=== PATIENT | female | born 1975 | race Caucasian/White ===

== ENCOUNTER 2020-09-24 11:07 | Emergency (ER) | payer OTHER ==
--- NOTE | 2020-09-24 12:02 | EDM.PDOC ---
ED HPI GENERAL MEDICAL PROBLEM - General Chief Complaint: Lower Extremity Injury/Pain Stated Complaint: RT KNEE PAIN Time Seen by Provider: 09/24/20 11:27 Source of Information: Reports: Patient, RN Notes Reviewed History Limitations: Reports: No Limitations - History of Present Illness INITIAL COMMENTS - FREE TEXT/NARRATIVE: Patient is a 45-year-old female presenting to the emergency department with complaints of right knee pain. She states she is been having discomfort to the knee and calf for about 2 weeks. Today, she slipped on a rug and felt a pop in her knee. She has been unable to bear weight since that time. She denies any history of blood clots or previous injuries to this knee. She does have an appointment set up with her primary care provider, however he is not able to get in until of this week. Right Knee Pain Score (Numeric/FACES): 10 - Related Data Allergies Allergy/AdvReac Type Severity Reaction Status Date / Time Sulfa (Sulfonamide Allergy Hives Verified 09/24/20 11:32 Antibiotics) Home Meds: Home Meds Escitalopram Oxalate [Lexapro] 10 mg PO DAILY 09/24/20 [History] Hydroxychloroquine [Plaquenil] 200 mg PO BID 09/24/20 [History] Naproxen [Naprosyn] 500 mg PO Q12HR 5 Days #10 tab 09/24/20 [Rx] Pantoprazole Sodium [Protonix] 40 mg PO DAILY 09/24/20 [History] Past Medical History - Past Health History Medical/Surgical History: Denies Medical/Surgical History Psychiatric History: Reports: None Social & Family History - Tobacco Use Tobacco Use Status *Q: Never Tobacco User Review of Systems - Review of Systems Review Of Systems: Comprehensive ROS is negative, except as noted in HPI. ED EXAM, GENERAL - Physical Exam Exam: See Below General Appearance: Alert, WD/WN, No Apparent Distress Respiratory/Chest: No Respiratory Distress, Lungs Clear, Normal Breath Sounds, No Accessory Muscle Use, Chest Non-Tender Cardiovascular: Normal Peripheral Pulses, Regular Rate, Rhythm, No Edema, No Gallop, No JVD, No Murmur, No Rub Extremities: Other (Tenderness to palpation throughout the right knee. Mild swelling. Mild tenderness to palpation to the posterior right calf. No redness or warmth present.) Neurological: Alert, Oriented, CN II-XII Intact, Normal Cognition, Normal Gait, Normal Reflexes, No Motor/Sensory Deficits Psychiatric: Normal Affect, Normal Mood Skin Exam: Warm, Dry, Intact, Normal Color, No Rash Course - Vital Signs Last Recorded V/S: Last Vital Signs Temp 98.5 F 09/24/20 11:28 Pulse 80 09/24/20 11:28 Resp 16 09/24/20 11:28 BP 145/95 H 09/24/20 11:28 Pulse Ox 100 09/24/20 11:28 - Re-Assessments/Exams Free Text/Narrative Re-Assessment/Exam: Patient is a 45-year-old female presenting to the emergency department with complaints of 2-week history of right knee and calf pain as well as an acute injury to her knee today. She states that her rug slipped out from underneath her and she felt something pop in her right knee. She has been unable to bear weight since that time. I have ordered a x-ray of the right knee as well as a venous Doppler ultrasound of the right lower extremity. 09/24/20 12:38 X-ray of the right knee shows a small joint effusion but no bony abnormalities. Ultrasound shows no evidence of DVT within the right lower extremity. We will place the knee in a knee immobilizer. Patient states that she has crutches at home so she does not need them here. I will send a prescription for Naprosyn. Recommend that she keep her follow-up appointment on with her primary care provider. Discharge instructions as documented. Departure - Departure Time of Disposition: 12:39 Disposition: Home, Self-Care 01 Condition: Good Clinical Impression: Knee pain Qualifiers: Chronicity: acute Laterality: right Qualified Code(s): M25.561 - Pain in right knee - Discharge Information *PRESCRIPTION DRUG MONITORING PROGRAM REVIEWED*: No *COPY OF PRESCRIPTION DRUG MONITORING REPORT IN PATIENT SHADY: No Prescriptions: Naproxen [Naprosyn] 500 mg PO Q12HR 5 Days #10 tab Instructions: Acute Knee Pain, Adult Referrals: Monty Kent MD [Primary Care Provider] - Forms: ED Department Discharge Additional Instructions: You were seen in the emergency department today for a 2-week history of knee and calf pain as well as an acute injury to your knee. X-rays and ultrasound of the right lower extremity were completed. X-ray showed a small amount of fluid on the knee but there was no bony abnormalities. Ultrasound was found to be normal. You have been provided with a knee immobilizer. Recommend ice and elevation for the next few days. Use the crutches that you have at home as needed. Recommend that you keep your follow-up appoint with Dr. Kent on for reevaluation. The prescription for Naprosyn has been sent to [facility]. Take this medication as prescribed. Do not take ibuprofen while taking this medication, however you may still use Tylenol. Return to ER as needed. Sepsis Event Note (ED) - Evaluation Sepsis Screening Result: No Definite Risk - Focused Exam Vital Signs: Vital Signs Temp Pulse Resp BP Pulse Ox 09/24/20 11:28 98.5 F 80 16 145/95 H 100
--- NOTE | 2020-09-24 12:32 | CR ---
Right knee: Knee, lateral and sunrise patellar views are obtained of the right knee. Comparison: No prior knee study is available. Small osteophytes are noted medially. Small bony exostosis is noted off the posterior tibia. Medial and lateral joint compartments are maintained in height. Very small joint effusion is seen. Impression: 1. Findings as noted above. 2. No acute bony abnormality is seen. 3. Small joint effusion. Diagnostic code #2
--- NOTE | 2020-09-24 12:34 | US ---
Right lower extremity: Duplex and color Doppler evaluation was obtained of the right common femoral, proximal greater saphenous, superficial femoral, popliteal, posterior tibial and peroneal veins. Left common femoral vein was also evaluated. Comparison: No prior venous imaging is available. Findings: Normal phasic flow, augmentation and compression is seen. No popliteal cyst is appreciated. Impression: 1. No evidence of deep venous thrombosis within the right lower extremity or within the left common femoral vein. Diagnostic code #1
== END 2020-09-24 13:30 | disposition home or self-care (01) ==
LOC: JD.ED 11:07
DX: M25.561 Pain in right knee (principal); Z88.2 Allergy status to sulfonamides
CPT/HCPCS: 73562-26-RT; 73562-RT; 93971-26-RT; 93971-RT; 99283; 99284-25